=== PATIENT | male | born 1995 | race Caucasian/White ===

== ENCOUNTER → 2016-12-16 | Outpatient (CLI) | payer SELFPAY ==
--- NOTE | 2016-12-16 15:23 | US ---
EXAM DESCRIPTION: Soft Tissue,Extremity CLINICAL HISTORY: 21 years Male, Unspecified soft tissue disorder COMPARISON: None. TECHNIQUE: Real-time sonographic images of the area of interest labeled right lateral elbow are obtained. FINDINGS: The technologist measured a lesion in this area as 1.3 x 0.9 x 0.4 cm. This lesion is hypoechoic and has the same echogenicity as adjacent subcutaneous soft tissue. IMPRESSION: In the area of palpable abnormality the lesion measuring 1.3 x 0.9 x 0.4 cm is noted. This could represent small lipoma. Electronically signed by: Sekou Santizo MD 12/16/2016 3:22 PM CDT
== END | disposition home or self-care (01) ==
LOC: US 13:15
PROVIDERS: ATTEND Nurse Practitioner Family
DX: M70.921 Unspecified soft tissue disorder related to use, overuse and pressure, right upper arm (principal)

== ENCOUNTER 2017-01-15 16:38 | Emergency (ER) | payer SELFPAY ==
[2017-01-15] MEDS ORDERED: SODIUM CHLORIDE 0.9% 1000ML 1,000 ML IVS ONE (16:54)
[2017-01-15] MEDS ORDERED: ACETAMINOPHEN 325 MG TAB PO ONE (16:54)
[2017-01-15] MEDS ORDERED: ALUMINUM & MAGNESIUM HYDROXIDE 30 ML UD PO ONE (16:54)
[2017-01-15] MEDS ORDERED: ONDANSETRON ODT 8 MG TAB SL SCH (17:00)
--- NOTE | 2017-01-15 18:22 | ED.PDOC ---
History of Present Illness - General Chief Complaint: Fever Stated Complaint: fever, sorethroat, n/v/d Time Seen by Provider: 01/15/17 16:54 Source: patient Exam Limitations: no limitations - History of Present Illness Initial Comments: The patient is a 21-year-old male presenting to the emergency room secondary to 4 days of symptoms. symptoms started on Thursday with some nausea and vomiting. No blood and no bile. He has had a few episodes of diarrhea. No real abdominal pain. 24-48 hours ago he started developing fevers along with a sore throat. he is also started developing a headache being he has had a hard time keeping himself hydrated. He has had a little bit of dizziness. clinical symptoms are consistent with multiple patients seen in the er today. Severity: moderate Improving Factors: nothing Worsening Factors: nothing Associated Symptoms: headaches, loss of appetite, malaise, nausea/vomiting, weakness Allergies/Adverse Reactions: Allergies Amoxicillin [From Augmentin] Allergy (Verified 01/15/17 17:03) Cefuroxime [From Ceftin] Allergy (Verified 01/15/17 17:03) Clavulanic Acid [From Augmentin] Allergy (Verified 01/15/17 17:03) Clindamycin Allergy (Verified 01/15/17 17:03) Hydrocodone Allergy (Verified 01/15/17 17:03) Rash Penicillins Allergy (Verified 01/15/17 17:03) Home Medications: Ambulatory Orders Famotidine 20 mg PO DAILY #30 tab 01/15/17 Ondansetron [Zofran Odt] 4 mg PO Q4H PRN #10 tab 01/15/17 Sucralfate Tab [Carafate Tab] 1 gm PO QID #120 tab 01/15/17 Review of Systems - Review of Systems Constitutional: States: fever, malaise, weakness EENTM: States: throat pain Respiratory: States: no symptoms reported Cardiology: States: no symptoms reported Gastrointestinal/Abdominal: States: diarrhea, nausea, vomiting Genitourinary: States: no symptoms reported Musculoskeletal: States: other - generalized body aches Skin: States: no symptoms reported Neurological: States: headache - mild with the dehydration Endocrine: States: excessive sweating - with the fever All other Systems: No Change from Baseline Past Medical History (General) - Patient Medical History Hx Stroke: No Hx Congestive Heart Failure: No Hx Diabetes: No Surgical History: tonsillectomy - Vaccination History Hx Tetanus, Diphtheria Vaccination: No Hx Influenza Vaccination: No - Social History Hx Tobacco Use: No Hx Alcohol Use: No - Activities of Daily Living Hospice Agency (if applicable):: None - Female History Patient is a Female of Child Bearing Age (10 -59 yrs old): No Patient : No Family Medical History - Family History Paternal Grandparents Living Status: Still Living Hx Cardiac Disease: Yes Physical Exam - Physical Exam General Appearance: Alert, No apparent distress Eye Exam: bilateral normal Ears, Nose, Throat: hearing grossly normal, normal ENT inspection Neck: non-tender, full range of motion, supple Respiratory: chest non-tender, lungs clear, normal breath sounds, no respiratory distress, no accessory muscle use Cardiovascular/Chest: normal peripheral pulses, no edema, tachycardia - but regular rhythm Peripheral Pulses: radial,right: 2+, radial,left: 2+, dorsalis pedis,right: 2+, dorsalis pedis,left: 2+, posterior tibialis,right: 2+, posterior tibialis,left: 2+ Gastrointestinal/Abdominal: normal bowel sounds, non tender, soft Rectal Exam: deferred Back Exam: normal inspection, no CVA tenderness, no vertebral tenderness Extremity: normal range of motion, non-tender, normal inspection, no pedal edema , no calf tenderness, normal capillary refill Neurologic: alert, normal mood/affect, oriented x 3 Skin Exam: normal color Comments: Vital Signs - 24 hr 01/15/17 16:52 Temperature 102.7 F H Pulse Rate [ 118 H pulse ox] Respiratory 20 Rate Blood Pressure 125/83 [Left Arm] O2 Sat by Pulse 98 Oximetry Progress - Progress Progress: 01/15/17 18:25 the patient is a 21-year-old male presenting with what appears to be a viral syndrome. Symptoms include fever, sore throat, nausea and vomiting. He is mildly dehydrated and has received a liter of IV fluids. He has received anti-emetics. the patient needs to take Pepcid 20 mg daily for 2 weeks. He needs to take Carafate for the next 2 weeks as well. He will be written for Zofran for nausea Control. He needs to increase his fluid intake. He needs to follow up with his primary care doctor early next week. Tylenol can be used every 6 hours for the next 3 days to control fever. ER warnings are given for any worsening. - Results/Orders Results/Orders: rapid flu a rapid strep are negative. Departure - Departure Clinical Impression: Viral syndrome, Dehydration, moderate Disposition: Discharge to Home or Self Care Condition: Fair Departure Forms: ED Discharge - Pt. Copy, Patient Portal Self Enrollment Instructions: DI for Dehydration -- Adult, DI for Viral Gastroenteritis -- Adult Diet: bland diet Activity: increase activity as tolerated Referrals: RIAN JEFF IV, [employer] [Primary Care Provider] - 1-2 Weeks Prescriptions: Famotidine 20 mg PO DAILY #30 tab Ondansetron [Zofran Odt] 4 mg PO Q4H PRN #10 tab PRN Reason: Vomiting Sucralfate Tab [Carafate Tab] 1 gm PO QID #120 tab Home Medications: Ambulatory Orders Famotidine 20 mg PO DAILY #30 tab 01/15/17 Ondansetron [Zofran Odt] 4 mg PO Q4H PRN #10 tab 01/15/17 Sucralfate Tab [Carafate Tab] 1 gm PO QID #120 tab 01/15/17 Additional Instructions: the patient is a 21-year-old male presenting with what appears to be a viral syndrome. Symptoms include fever, sore throat, nausea and vomiting. He is mildly dehydrated and has received a liter of IV fluids. He has received anti-emetics. the patient needs to take Pepcid 20 mg daily for 2 weeks. He needs to take Carafate for the next 2 weeks as well. He will be written for Zofran for nausea Control. He needs to increase his fluid intake. He needs to follow up with his primary care doctor early next week. Tylenol can be used every 6 hours for the next 3 days to control fever. ER warnings are given for any worsening.
[2017-01-15] MEDS ORDERED: PROMETHAZINE HCL 25 MG TAB PO ONE (18:24)
[2017-01-15 18:43] VITALS: BP 126/81; TEMP 100.1; O2SAT 93
== END 2017-01-15 18:43 | disposition home or self-care (01) ==
LOC: ER 16:38
DX: B34.9 Viral infection, unspecified (principal); E86.0 Dehydration; Z88.0 Allergy status to penicillin; Z88.3 Allergy status to other anti-infective agents; Z88.8 Allergy status to other drugs, medicaments and biological substances

== ENCOUNTER 2017-05-02 23:38 | Emergency (ER) | payer SELFPAY ==
[2017-05-03] MEDS ORDERED: MORPHINE SULFATE INJ 10 MG/ML VIAL IV ONE ×3 (00:11→01:57)
[2017-05-03] MEDS ORDERED: SODIUM CHLORIDE 0.9% 1000ML 1,000 ML IVS ONE (00:12)
[2017-05-03] MEDS ORDERED: PROMETHAZINE HCL INJ 25 MG/ML VIAL IM ONE (00:23)
--- NOTE | 2017-05-03 00:24 | ED.PDOC ---
History of Present Illness - General Chief Complaint: Problem Stated Complaint: Flank pain Time Seen by Provider: 05/03/17 00:21 Source: patient, Vital Signs reviewed Exam Limitations: no limitations - History of Present Illness Initial Comments: Rishi Cummings 21 y/o male with history of nephrolithiasis stated that he had been having right flank pain for the last one week and went to his primary was given pain med and flomax but for the last several days his right flank pain got worse and was brought by dad to [facility] ER Timing/Duration: getting worse, other - one week Improving Factors: nothing Worsening Factors: nothing Associated Symptoms: denies symptoms Allergies/Adverse Reactions: Allergies Amoxicillin [From Augmentin] Allergy (Verified 01/15/17 17:03) Cefuroxime [From Ceftin] Allergy (Verified 01/15/17 17:03) Clavulanic Acid [From Augmentin] Allergy (Verified 01/15/17 17:03) Clindamycin Allergy (Verified 01/15/17 17:03) Hydrocodone Allergy (Verified 01/15/17 17:03) Rash Penicillins Allergy (Verified 01/15/17 17:03) Home Medications: Ambulatory Orders Ketorolac Tromethamine [Toradol Tabs] 10 mg PO PRN PRN 05/02/17 Tamsulosin HCl [Flomax] 0.4 mg PO DAILY 05/02/17 Tramadol HCl 50 mg PO Q4HR PRN #14 tab 05/03/17 Review of Systems - Review of Systems Constitutional: States: no symptoms reported EENTM: States: no symptoms reported Respiratory: States: no symptoms reported Cardiology: States: no symptoms reported Gastrointestinal/Abdominal: States: no symptoms reported Genitourinary: States: see HPI Musculoskeletal: States: no symptoms reported Skin: States: no symptoms reported Neurological: States: no symptoms reported Past Medical History (General) - Patient Medical History Hx Seizures: No Hx Stroke: No Hx Dementia: No Hx Asthma: No Hx of COPD: No Hx Cardiac Disorders: No Hx Congestive Heart Failure: No Hx Pacemaker: No Hx Hypertension: No Hx Thyroid Disease: No Hx Diabetes: No Hx Gastroesophageal Reflux: No Hx Renal Disease: No Hx Cancer: No Hx of HIV: No Hx Hepatitis C: No Hx MRSA: No Hx Other PMH: Yes - nephrolithiasis Surgical History: no surgical history - Vaccination History Hx Tetanus, Diphtheria Vaccination: Yes Hx Influenza Vaccination: No Hx Pneumococcal Vaccination: No Immunizations Up to Date: Yes - Social History Hx Tobacco Use: No Hx Alcohol Use: No Hx Substance Use: No - Activities of Daily Living Hospice Agency (if applicable):: None - Female History Patient : No Family Medical History - Family History Paternal Grandparents Living Status: Still Living Hx Cardiac Disease: Yes Hx Family Cancer: Yes - renal cancer-mom Hx Family;Other: nephrolithiasis -multiple family members Physical Exam - Physical Exam General Appearance: Alert, No apparent distress, Other - in pain Eye Exam: bilateral normal Ears, Nose, Throat: hearing grossly normal, normal ENT inspection, normal pharynx Neck: non-tender, full range of motion, supple Respiratory: chest non-tender, lungs clear Cardiovascular/Chest: normal peripheral pulses, regular rate, rhythm, no edema, no murmur Peripheral Pulses: radial,right: 1+, radial,left: 1+ Gastrointestinal/Abdominal: normal bowel sounds, non tender, soft, no organomegaly Back Exam: normal inspection, no CVA tenderness, no vertebral tenderness Extremity: non-tender, no pedal edema, no calf tenderness Neurologic: alert, oriented x 3 Skin Exam: normal color, warm/dry Lymphatic: no adenopathy Progress - Progress Progress: 05/03/17 04:54 Vital Signs - 8 hr 05/02/17 05/03/17 23:55 00:02 Temperature 99.1 F Pulse Rate [ 63 63 Right radial] Respiratory 20 20 Rate Blood Pressure 153/78 [Right Arm] O2 Sat by Pulse 100 Oximetry Laboratory Tests 05/03/17 05/03/17 05/03/17 00:03 00:03 00:30 WBC 15.2 H RBC 5.39 Hgb 15.1 Hct 45.9 MCV 85.0 MCH 28.0 MCHC 33.0 RDW 12.9 Plt Count 292 MPV 8.2 Absolute Neuts (auto) 12.50 H Absolute Lymphs (auto) 1.60 Absolute Monos (auto) 1.00 H Absolute Eos (auto) 0.00 Absolute Basos (auto) 0.10 Neutrophils % 82.5 H Lymphocytes % 10.4 L Monocytes % 6.3 Eosinophils % 0.3 L Basophils % 0.5 Sodium Potassium Chloride Carbon Dioxide Anion Gap BUN Creatinine BUN/Creatinine Ratio Random Glucose Serum Osmolality Calcium Total Bilirubin AST ALT Alkaline Phosphatase Serum Total Protein Albumin Globulin Albumin/Globulin Ratio Urine Color Yellow Urine Appearance Cloudy Urine pH 7.5 Ur Specific [place] 1.020 Urine Protein Negative Urine Glucose (UA) Negative Urine Ketones 40 H Urine Blood Large H Urine Nitrite Negative Urine Bilirubin Negative Urine Urobilinogen 1.0 Ur Leukocyte Esterase Negative Urine RBC 30-40 H Urine WBC 0-1 Ur Epithelial Cells 0 Amorphous Sediment 2+ Urine Bacteria Rare Urine Opiates Screen Negative Urine Barbiturates Negative Ur Phencyclidine Scrn Negative U Amphetamin/Meth Scrn Negative U Benzodiazepines Scrn Negative U Cocaine Metab Screen Negative U Cannabinoids Screen Positive H 05/03/17 00:30 WBC RBC Hgb Hct MCV MCH MCHC RDW Plt Count MPV Absolute Neuts (auto) Absolute Lymphs (auto) Absolute Monos (auto) Absolute Eos (auto) Absolute Basos (auto) Neutrophils % Lymphocytes % Monocytes % Eosinophils % Basophils % Sodium 141 Potassium 4.1 Chloride 107 Carbon Dioxide 24 Anion Gap 14.1 BUN 19 H Creatinine 1.39 H BUN/Creatinine Ratio 13.7 Random Glucose 114 H Serum Osmolality 284.4 Calcium 9.7 Total Bilirubin 0.8 AST 24 ALT 46 Alkaline Phosphatase 63 Serum Total Protein 7.1 Albumin 4.6 Globulin 2.5 Albumin/Globulin Ratio 1.8 Urine Color Urine Appearance Urine pH Ur Specific [place] Urine Protein Urine Glucose (UA) Urine Ketones Urine Blood Urine Nitrite Urine Bilirubin Urine Urobilinogen Ur Leukocyte Esterase Urine RBC Urine WBC Ur Epithelial Cells Amorphous Sediment Urine Bacteria Urine Opiates Screen Urine Barbiturates Ur Phencyclidine Scrn U Amphetamin/Meth Scrn U Benzodiazepines Scrn U Cocaine Metab Screen U Cannabinoids Screen - Results/Orders Results/Orders: No longer hurting has appointment with primary md 05/04/2017 - EKG/XRAY/CT CT Ordered: Yes - abd/pelvis;right nephrolithiasis,ureterolithiasis w/right hydronephrosis, Departure - Departure Clinical Impression: Right flank pain, Ureterolithiasis, Right nephrolithiasis, Hydronephrosis due to obstruction of ureter, Renal insufficiency Hematuria Qualifiers: Hematuria type: other microscopic Qualified Code(s): R31.29 - Other microscopic hematuria Time of Disposition: 05:00 Disposition: Discharge to Home or Self Care Condition: Fair Departure Forms: ED Discharge - Pt. Copy, Patient Portal Self Enrollment Instructions: Kidney Stones (Alternative Therapy), Kidney Stones -- Adult, Extracorporeal Shock Wave Lithotripsy for Kidney Stones, DI for Kidney Stones Referrals: RIAN JEFF IV, [employer]ANT [Primary Care Provider] - 1-2 Weeks Prescriptions: Tramadol HCl 50 mg PO Q4HR PRN #14 tab PRN Reason: Pain Home Medications: Ambulatory Orders Ketorolac Tromethamine [Toradol Tabs] 10 mg PO PRN PRN 05/02/17 Tamsulosin HCl [Flomax] 0.4 mg PO DAILY 05/02/17 Tramadol HCl 50 mg PO Q4HR PRN #14 tab 05/03/17 Additional Instructions: Keep appointment with primary md 05/04/2017 Return to emergency room as needed
--- NOTE | 2017-05-03 01:32 | CT ---
EXAM DESCRIPTION: Abdoment/Pelvis w/o Contrast CLINICAL HISTORY: Lateral abdominal pain COMPARISON: None Available TECHNIQUE: Contiguous axial images of the abdomen and pelvis were obtained followed by reconstruction images. This exam was performed according to our departmental dose-optimization program, which includes automated exposure control, adjustment of the mA and/or kV according to patient size and/or use of iterative reconstruction technique. FINDINGS: There is a noncalcified 4 mm pulmonary nodule within the left lower lung, image one, partially visualized. The liver is of decreased attenuation compatible with fatty infiltration. The right kidney demonstrates hydronephrosis due to a 2.5 mm stone within the distal ureter just proximal to the ureterovesical junction. There are other nonobstructing stones within the right kidney. The liver, spleen, pancreas and left kidney are within normal limits. The gallbladder is unremarkable by CT criteria. Adrenal glands are within normal limits. Aorta is of normal caliber and tapering. There is no free fluid in the abdomen or pelvis. There is no bowel obstruction. There is no stranding of the mesenteric fat to suggest an inflammatory response. The appendix is within normal limits. There is no pericecal inflammation. IMPRESSION: Right-sided hydronephrosis due to a 5 x 2.5 mm stone at the distal ureter just proximal to the ureterovesical junction. Additional nonobstructive right renal stones. 4 mm noncalcified pulmonary nodule, partially visualized. 2017 Fleischner Society Recommendations for Single Solid Lung Nodule Follow-Up based on size (average of long- and short-axis diameters) <6 mm Low-Risk Patient: No routine follow-up <6 mm High-Risk Patient: Optional CT at 12 months Electronically signed by: Wilbert Holland MD 05/03/2017 1:31 AM CDT
[2017-05-03] MEDS ORDERED: LACTATED RINGERS 1,000 ML IVS ONE (01:40)
[2017-05-03] MEDS ORDERED: KETOROLAC TROMETHAMINE INJ 30 MG/ML VIAL IV ONE (01:41)
[2017-05-03] MEDS ORDERED: levoFLOXacin 500MG IV 500 MG in PREMIX BAG 1 BAG IVPB ONE (01:59)
[2017-05-03] MEDS ORDERED: levoFLOXacin 500MG IV 100 ML IVPB ONE (02:52)
[2017-05-03 05:30] VITALS: BP 134/86; TEMP 98; O2SAT 96
== END 2017-05-03 05:20 | disposition home or self-care (01) ==
LOC: ER 23:38
DX: N13.2 Hydronephrosis with renal and ureteral calculous obstruction (principal); Z88.0 Allergy status to penicillin; Z88.6 Allergy status to analgesic agent; Z88.3 Allergy status to other anti-infective agents
CPT/HCPCS: 36415; 74176; 80053; 80307; 81001; 85025; J1885; J1956; J2270; J2550; J7030; J7120

== ENCOUNTER → 2018-02-25 | Outpatient (CLI) | payer BC | LOC: LAB.O 11:56 | PROVIDERS: ATTEND Nurse Practitioner Family | DX: N13.30 Unspecified hydronephrosis (principal) ==

== ENCOUNTER → 2018-07-01 | Outpatient (CLI) | payer BC ==
--- NOTE | 2018-07-01 16:38 | US ---
EXAM DESCRIPTION: Testicular CLINICAL HISTORY: 22 years Male, EPIDIDYMITIS COMPARISON: None available. TECHNIQUE: Multiple static, transverse and longitudinal sonographic images of the scrotum were obtained. Doppler evaluation was performed as well. FINDINGS: The right testicle measures 4.2 x 3.4 x 2.3 cm and the left testicle measures 4.4 x 3.2 x 2.2 cm.Both testicles demonstrate homogenous appearance with no masses. Blood flow is identified bilaterally, with no evidence of torsion. Bilateral epididymi appear normal. Few epididymal cysts measuring up to 9 mm are noted in the left side. IMPRESSION: Left-sided epididymal cysts. Otherwise normal ultrasound of the scrotum. Electronically signed by: Caitie Shrestha MD 07/01/2018 4:37 PM CDT
== END ==
LOC: RAD 14:16
PROVIDERS: ATTEND Nurse Practitioner Family
DX: N45.1 Epididymitis (principal); N50.3 Cyst of epididymis

== ENCOUNTER 2019-07-12 17:45 | Emergency (ER) | payer BC ==
[2019-07-12] MEDS ORDERED: PROMETHAZINE HCL INJ 25 MG in SODIUM CHLORIDE 0.9% 50ML 50 ML IVPB ONE (18:04)
[2019-07-12] MEDS ORDERED: ALUM & MAG HYDROX-SIMETHICONE 30 ML, LIDOCAINE VISCOUS 2% 15 ML PO ONE ×2 (18:04)
[2019-07-12] MEDS ORDERED: SODIUM CHLORIDE 0.9% 1000ML 1,000 ML IVS ONE ×2 (18:04→20:41)
[2019-07-12] MEDS ORDERED: PANTOPRAZOLE SODIUM IV 40 MG VIAL IV ONE (18:04)
[2019-07-12] MEDS ORDERED: PROMETHAZINE HCL INJ 25 MG/ML VIAL ONE (18:06)
[2019-07-12] MEDS ORDERED: LIDOCAINE HCL 2% (MOUTH-THROAT) 15 ML UD ONE (18:06)
[2019-07-12] MEDS ORDERED: ALUM & MAG HYDROX-SIMETHICONE 30 ML UD ONE (18:06)
[2019-07-12] MEDS ORDERED: SODIUM CHLORIDE 0.9% 50ML 50 ML ONE (18:07)
[2019-07-12] MEDS ORDERED: IBUPROFEN 200 MG TAB PO ONE (18:42)
--- NOTE | 2019-07-12 19:15 | RAD ---
PROCEDURE: XR Abdomen Series CLINICAL HISTORY: 23 years Male nvd 24 hours TECHNIQUE: One view of the chest and two views of the abdomen are provided. COMPARISON: No prior exams provided for comparison. FINDINGS: The lungs are clear without focal consolidation, effusion, or pneumothorax. The cardiomediastinal silhouette and central pulmonary vasculature are normal. Nonspecific bowel gas pattern without evidence of obstruction or free air. No abnormal radiodensities. No aggressive osseous lesion. IMPRESSION: No acute findings in the chest or abdomen. Electronically signed by: Meron Hilario MD 07/12/2019 7:14 PM CDT
[2019-07-12] MEDS ORDERED: traMADol HCL 50 MG TAB PO ONE (19:33)
[2019-07-12 21:05] VITALS: TEMP 98.6
[2019-07-12] MEDS ORDERED: SUCRALFATE 1 GM/10 ML 1 GM UD PO ONE (21:08)
--- NOTE | 2019-07-12 21:10 | ED.PDOC ---
History of Present Illness - General Chief Complaint: GI Problem Stated Complaint: ARVIZU,dizziness,diarrhea,fever,abd pain Time Seen by Provider: 07/12/19 17:47 Source: patient Exam Limitations: no limitations - History of Present Illness Initial Comments: the patient's a 23-year-old male presenting to the emergency room secondary to nausea and vomiting for the last 24 hours with associated diarrhea. No blood or bile. Mild epigastric discomfort. He does feel dehydrated and does get dizzy with standing. No syncope. No chest pain. No focal abdominal pain. No history of diverticulitis. No right upper quadrant pain. Timing/Duration: 24 hours Severity: moderate Improving Factors: nothing Worsening Factors: eating Associated Symptoms: fever/chills, loss of appetite, malaise, nausea/vomiting Allergies/Adverse Reactions: Allergies Amoxicillin [From Augmentin] Allergy (Verified 01/15/17 17:03) Cefuroxime [From Ceftin] Allergy (Verified 01/15/17 17:03) Ciprofloxacin [From Cipro] Allergy (Verified 07/12/19 17:57) Clavulanic Acid [From Augmentin] Allergy (Verified 01/15/17 17:03) Clindamycin Allergy (Verified 01/15/17 17:03) Hydrocodone Allergy (Verified 01/15/17 17:03) Rash Penicillins Allergy (Verified 01/15/17 17:03) Home Medications: Ambulatory Orders Famotidine 20 mg PO DAILY #30 tab 07/12/19 Ondansetron Odt [Zofran ODT] 4 mg PO Q8HR PRN #5 tab 07/12/19 Sucralfate Tab [Carafate Tab] 1 gm PO QID #60 tab 07/12/19 Review of Systems - Review of Systems Constitutional: States: fever, malaise EENTM: States: no symptoms reported Respiratory: States: no symptoms reported Cardiology: States: no symptoms reported Gastrointestinal/Abdominal: States: abdominal pain, diarrhea, nausea, vomiting Genitourinary: States: no symptoms reported Musculoskeletal: States: no symptoms reported Skin: States: no symptoms reported Neurological: States: headache Endocrine: States: no symptoms reported All other Systems: No Change from Baseline Past Medical History (General) - Patient Medical History Hx Seizures: No Hx Stroke: No Hx Dementia: No Hx Asthma: No Hx of COPD: No Hx Cardiac Disorders: No Hx Congestive Heart Failure: No Hx Pacemaker: No Hx Hypertension: No Hx Thyroid Disease: No Hx Diabetes: No Hx Gastroesophageal Reflux: No Hx Renal Disease: No Hx Cancer: No Hx of HIV: No Hx Hepatitis C: No Hx MRSA: No - Vaccination History Hx Tetanus, Diphtheria Vaccination: Yes Hx Influenza Vaccination: No Hx Pneumococcal Vaccination: No - Social History Hx Tobacco Use: No Hx Alcohol Use: No Hx Substance Use: No - Female History Patient : No Family Medical History - Family History Paternal Grandparents Living Status: Still Living Hx Cardiac Disease: Yes Hx Family Cancer: Yes - renal cancer-mom Hx Family;Other: nephrolithiasis -multiple family members Physical Exam - Physical Exam General Appearance: Alert, No apparent distress Eye Exam: bilateral normal Ears, Nose, Throat: hearing grossly normal, normal ENT inspection Neck: full range of motion, supple, other - no nuchal rigidity or meningeal sign s. Respiratory: lungs clear, normal breath sounds, no respiratory distress, no accessory muscle use Cardiovascular/Chest: normal peripheral pulses, regular rate, rhythm, no edema Peripheral Pulses: radial,right: 2+, radial,left: 2+, dorsalis pedis,right: 2+, dorsalis pedis,left: 2+ Gastrointestinal/Abdominal: soft, other - mild epigastric discomfort palpation. 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, alert, normal mood/affect, oriented x 3 Skin Exam: normal color Comments: Vital Signs - 24 hr 07/12/19 07/12/19 07/12/19 17:53 18:46 19:46 Temperature 100.5 F H Pulse Rate [ 107 H 80 76 Left Brachial] Respiratory 20 18 18 Rate Blood Pressure 129/78 129/86 117/75 [Left Arm] O2 Sat by Pulse 98 94 L 94 L Oximetry 07/12/19 07/12/19 20:00 21:00 Temperature 98.6 F Pulse Rate [ 68 73 Left Brachial] Respiratory 18 16 Rate Blood Pressure 104/71 107/73 [Left Arm] O2 Sat by Pulse 95 95 Oximetry Progress - Progress Progress: 07/12/19 21:11 the patient is a 23-year-old male presenting to the emergency room with what appears to be a viral gastroenteritis of 2 days duration with moderate dehydration. The patient does have a significant gastritis component. He has received 2 L of IV fluids. He has been placed on acid reducing medications. He has responded well to nausea medications. Laboratory work and x-ray are reassuring. He does need to maintain a bland diet. He will be written for Zofran for as needed use. He will additionally be placed on Pepcid and Carafate for the next week for gastritis issues. He needs to avoid work tomorrow. Follow-up primary care doctor towards the end of the week. ER warnings were given for any significant worsening. [email or web address] [email or web address] [id number] - Results/Orders Results/Orders: rapid flu is negative. Acute abdominal series shows no acute pathology. Laboratory Tests 07/12/19 07/12/19 07/12/19 18:20 18:20 18:20 WBC 11.2 H RBC 5.62 Hgb 16.0 Hct 48.0 MCV 85.3 MCH 28.4 MCHC 33.3 RDW 12.8 Plt Count 258 MPV 7.7 Absolute Neuts (auto) 8.80 H Absolute Lymphs (auto) 1.40 Absolute Monos (auto) 0.90 H Absolute Eos (auto) 0.00 Absolute Basos (auto) 0.10 Neutrophils % 79.2 H Lymphocytes % 12.6 L Monocytes % 7.8 Eosinophils % 0.0 L Basophils % 0.4 Sodium 135 Potassium 3.8 Chloride 99 L Carbon Dioxide 22 Anion Gap 17.8 BUN 13 Creatinine 1.05 BUN/Creatinine Ratio 12.4 Random Glucose 92 Serum Osmolality 269.9 L Lactic Acid Calcium 9.4 Magnesium 1.8 Total Bilirubin 0.9 AST 25 ALT 37 Alkaline Phosphatase 60 Creatine Kinase 77 CK-MB (CK-2) 0.3 CK-MB (CK-2) % Not Reportable Troponin I < 0.02 Serum Total Protein 7.4 Albumin 4.4 Globulin 3.0 Albumin/Globulin Ratio 1.5 Amylase 28 Lipase 27 Urine Color Urine Appearance Urine pH Ur Specific [place] Urine Protein Urine Glucose (UA) Urine Ketones Urine Blood Urine Nitrite Urine Bilirubin Urine Urobilinogen Ur Leukocyte Esterase Urine RBC Urine WBC Ur Epithelial Cells Urine Bacteria Urine Mucus Group A Strep Rapid 07/12/19 07/12/19 07/12/19 18:20 18:20 18:30 WBC RBC Hgb Hct MCV MCH MCHC RDW Plt Count MPV Absolute Neuts (auto) Absolute Lymphs (auto) Absolute Monos (auto) Absolute Eos (auto) Absolute Basos (auto) Neutrophils % Lymphocytes % Monocytes % Eosinophils % Basophils % Sodium Potassium Chloride Carbon Dioxide Anion Gap BUN Creatinine BUN/Creatinine Ratio Random Glucose Serum Osmolality Lactic Acid 0.8 Calcium Magnesium Total Bilirubin AST ALT Alkaline Phosphatase Creatine Kinase CK-MB (CK-2) CK-MB (CK-2) % Troponin I Serum Total Protein Albumin Globulin Albumin/Globulin Ratio Amylase Lipase Urine Color Yellow Urine Appearance Clear Urine pH 6.0 Ur Specific [place] 1.020 Urine Protein 30 Urine Glucose (UA) Negative Urine Ketones >=160 Urine Blood Trace-lysed H Urine Nitrite Negative Urine Bilirubin Small H Urine Urobilinogen 0.2 Ur Leukocyte Esterase Negative Urine RBC 0-1 Urine WBC 0-1 Ur Epithelial Cells 0 Urine Bacteria Rare Urine Mucus Trace Group A Strep Rapid Negative Departure - Departure Clinical Impression: Gastroenteritis, Dehydration Disposition: Discharge to Home or Self Care Condition: Fair Departure Forms: ED Discharge - Pt. Copy, Patient Portal Self Enrollment Instructions: DI for Gastritis, DI for Diarrhea and Traveler's Diarrhea -- Adult Diet: bland diet Activity: increase activity as tolerated Referrals: RIAN JEFF IV, [employer] [Primary Care Provider] - 1-5 Days Prescriptions: Ondansetron Odt [Zofran ODT] 4 mg PO Q8HR PRN #5 tab PRN Reason: Nausea--Moderate Famotidine 20 mg PO DAILY #30 tab Sucralfate Tab [Carafate Tab] 1 gm PO QID #60 tab Home Medications: Ambulatory Orders Famotidine 20 mg PO DAILY #30 tab 07/12/19 Ondansetron Odt [Zofran ODT] 4 mg PO Q8HR PRN #5 tab 07/12/19 Sucralfate Tab [Carafate Tab] 1 gm PO QID #60 tab 07/12/19 Additional Instructions: the patient is a 23-year-old male presenting to the emergency room with what appears to be a viral gastroenteritis of 2 days duration with moderate dehydration. The patient does have a significant gastritis component. He has received 2 L of IV fluids. He has been placed on acid reducing medications. He has responded well to nausea medications. Laboratory work and x-ray are reassuring. He does need to maintain a bland diet. He will be written for Zofran for as needed use. He will additionally be placed on Pepcid and Carafate for the next week for gastritis issues. He needs to avoid work tomorrow. Follow-up primary care doctor towards the end of the week. ER warnings were given for any significant worsening.
[2019-07-12 22:04] VITALS: BP 114/75; O2SAT 98
== END 2019-07-12 22:00 | disposition home or self-care (01) ==
LOC: ER 17:45
DX: K52.9 Noninfective gastroenteritis and colitis, unspecified (principal); E86.0 Dehydration; Z88.1 Allergy status to other antibiotic agents; Z88.0 Allergy status to penicillin; Z88.2 Allergy status to sulfonamides
CPT/HCPCS: 36415; 74019; 80053; 81001; 82150; 82550; 82553; 83605; 83690; 83735; 84484; 85025; 87040; 87070; 87502; 87880; A4216; J2550; J7030

== ENCOUNTER → 2020-04-18 | Outpatient (CLI) | payer BC | LOC: YCFC.O 09:44 | PROVIDERS: ATTEND Family Medicine | DX: Z03.818 Encounter for observation for suspected exposure to other biological agents ruled out (principal); Z20.828 Contact with and (suspected) exposure to other viral communicable diseases ==